=== PATIENT | male | born 2000 | race African-American/Black ===

== ENCOUNTER 2021-03-20 16:23 | Emergency (ER) | payer OTHER ==
[2021-03-20 17:01] LABS: Absolute Lymphocytes (CBC) 0.8 K/uL (0.7-4.9); Basophils % 0.7 % (0-1.3); Hematocrit 38.6 % (39.6-49.0); Lymphocytes % 13.4 % (15.3-44.8); RBC Red Blood Cell Count 4.85 M/uL (4.33-5.43)
[2021-03-20 17:13] LABS: BUN Blood Urea Nitrogen 15 mg/dL (7-18); Bicarbonate 27 mmol/L (21-32); Glucose Level 91 mg/dL (74-106); Potassium 3.7 mmol/L (3.5-5.1); Sodium Level 143 mmol/L (136-145)
--- NOTE | 2021-03-20 17:17 | RAD REPORT ---
EXAM DESCRIPTION: CT - [id number] - 03/20/2021 4:59 pm CLINICAL HISTORY: Trauma, head and neck injury. Pain;Numbness/tingling COMPARISON: No comparisons TECHNIQUE: Axial 5 mm thick images of the head were obtained. Axial 2 mm thick images of the cervical spine were obtained with sagittal and coronal reconstruction images generated and reviewed. All CT scans are performed using dose optimization technique as appropriate and may include automated exposure control or mA/KV adjustment according to patient size. FINDINGS: CT HEAD WITHOUT CONTRAST: No acute hemorrhage, hydrocephalus or extra-axial collection is identified.No areas of brain edema or midline shift. The paranasal sinuses and mastoids are clear.The calvarium is intact. CT CERVICAL SPINE WITHOUT CONTRAST: No fracture or subluxation.Mild midcervical spondylosis is present with kyphosis.No prevertebral soft tissues swelling is identified. IMPRESSION: No acute intracranial or cervical spine findings. Mild midcervical degenerative changes.
--- NOTE | 2021-03-20 17:44 | ER ---
Nurse's Notes [facility] Name: Zenon Kumari Age: 20 yrs Sex: Male : 2000 Arrival Date: 03/20/2021 Time: 16:26 Bed 2 Private MD: Diagnosis: Paresthesia of skin Presentation: 03/20 16:26 Chief complaint: EMS states: Toned out for possible SI, pt denies SI/HI, possible jl7 seizure, possible syncopal episode. Pt reports numbness to left nostril and left facial cheek x 2 weeks. Coronavirus screen: Client denies travel out of the [place] in the last 14 days. At this time, the client does not indicate any symptoms associated with coronavirus-19. Ebola Screen: No symptoms or risks identified at this time. Initial Sepsis Screen: Does the patient meet any 2 criteria? No. Patient's initial sepsis screen is negative. Does the patient have a suspected source of infection? No. Patient's initial sepsis screen is negative. Risk Assessment: Do you want to hurt yourself or someone else? Patient reports no desire to harm self or others. Onset of symptoms was March 20, 2021. Care prior to arrival: IV initiated. 18 GA, in the right forearm. 16:26 Method Of Arrival: EMS: [facility] 16:26 Acuity: KVNG 3 jl7 Triage Assessment: 16:32 General: Appears in no apparent distress. uncomfortable, Behavior is calm, cooperative, jl7 appropriate for age. Pain: Denies pain. Historical: - Allergies: 16:32 No Known Allergies; jl7 - Home Meds: 16:32 Lisinopril Oral [Active]; jl7 - PMHx: 16:32 Hypertensive disorder; jl7 - PSHx: 16:32 None; jl7 - Immunization history:: Adult Immunizations up to date, Client reports having NOT received the Covid vaccine. - Social history:: Smoking status: Patient denies any tobacco usage or history of. Screenin:28 Abuse screen: Denies threats or abuse. Nutritional screening: No deficits noted. jd3 Tuberculosis screening: No symptoms or risk factors identified. VAN Screening: Arm Drift: Patient shows no arm weakness. Patient is VAN negative. Fall Risk Fall in past 12 months (25 points). IV access (20 points). Ambulatory Aid- None/Bed Rest/Nurse Assist (0 pts). Gait- Normal/Bed Rest/Wheelchair (0 pts) Mental Status- Oriented to own ability (0 pts). Total Verdin Fall Scale indicates High Risk Score (45 or more points). Fall prevention measures have been instituted. Side Rails Up X 2 Placed Close to Nursing Station Frequent Obs/Assessments Occuring. Assessment: 16:28 General: Appears in no apparent distress. uncomfortable, Behavior is calm, cooperative, jd3 appropriate for age. Pain: Complains of pain in head and neck Quality of pain is described as crampy, tender. Neuro: Level of Consciousness is awake, alert, obeys commands, Oriented to person, place, time, situation, Skin Toggler are equal bilaterally Moves all extremities. Full function Speech is normal, Facial symmetry appears normal, Pupils are PERRLA, Intact Reports numbness in left cheek, left side of the nose and left ear since 2 weeks a syncopal episode. Cardiovascular: Denies chest pain, Capillary refill < 3 seconds Patient's skin is warm and dry. Respiratory: Airway is patent Respiratory effort is even, unlabored, Respiratory pattern is regular, symmetrical, Denies cough, shortness of breath. GI: No signs and/or symptoms were reported involving the gastrointestinal system. Patient currently denies diarrhea, nausea, vomiting. : No signs and/or symptoms were reported regarding the genitourinary system. EENT: No signs and/or symptoms were reported regarding the EENT system. Derm: Skin is intact, Skin is dry, Skin is normal, Skin temperature is warm. Musculoskeletal: Circulation, motion, and sensation intact. Range of motion: intact in all extremities. 17:30 Reassessment: Patient appears in no apparent distress at this time. No changes from jd3 previously documented assessment. Patient and/or family updated on plan of care and expected duration. Pain level reassessed. Patient is alert, oriented x 3, equal unlabored respirations, skin warm/dry/pink. Vital Signs: 16:26 BP 141 / 77; Pulse 79; Resp 15; Temp 97.2; Pulse Ox 100% ; Weight 86.18 kg; Height 5 jl7 ft. 11 in. (180.34 cm); 17:30 BP 148 / 91; Pulse 57; Resp 16 S; Pulse Ox 99% on R/A; jd3 16:26 Body Mass Index 26.50 (86.18 kg, 180.34 cm) jl7 ED Course: 16:26 Patient arrived in ED. jl7 16:26 London Ni PA is PHCP. jr8 16:26 Donald Puentes MD is Attending Physician. jr8 16:28 Roc Cohen, RN is Primary Nurse. jd3 16:30 Patient has correct armband on for positive identification. Bed in low position. Call jd3 light in reach. Side rails up X2. Adult w/ patient. Seizure precautions initiated. Pulse ox on. NIBP on. 16:32 Triage completed. jl7 16:32 Arm band placed on right wrist. jl7 16:37 Maintain EMS IV. Dressing intact. Good blood return noted. Site clean \T\ dry. Gauge \T\ lolis 3 site: 18 g to the left forearm. 16:57 CT Head C Spine In Process Unspecified. EDMS 17:56 No provider procedures requiring assistance completed. IV discontinued, intact, jd3 bleeding controlled, No redness/swelling at site. Pressure dressing applied. Administered Medications: No medications were administered Outcome: 17:43 Discharge ordered by MD. jr8 17:57 Discharged to Detention with long term guards jd3 17:57 Condition: stable 17:57 Discharge instructions given to patient, long term guards Instructed on discharge instructions, follow up and referral plans. Demonstrated understanding of instructions, follow-up care. 17:58 Patient left the ED. jd3 Signatures: Dispatcher [employer] EDMS London Ni PA PA jr8 Case Olmedo RN RN jl7 Roc Cohen, RN RN jd3 Corrections: (The following items were deleted from the chart) 16:37 16:28 General: Appears in no apparent distress. comfortable, Behavior is calm, jd3 cooperative, appropriate for age, jd3 16:37 16:28 Neuro: Level of Consciousness is awake, alert, obeys commands, Oriented to jd3 person, place, time, situation, Reports numbness in left cheek, left side of the nose and left ear since 2 weeks a syncopal episode jd3 16:37 16:37 Maintain EMS IV. Dressing intact. Good blood return noted. Site clean \T\ dry. jd3 Gauge \T\ site: 18 g to the left AC. jd3
--- NOTE | 2021-03-20 17:44 | EDPHYS ---
Physician Documentation [facility] Name: Zenon Kumari Age: 20 yrs Sex: Male : 2000 Arrival Date: 03/20/2021 Time: 16:26 Bed 2 Private MD: ED Physician Donald Puentes HPI: 03/20 17:09 This 20 yrs old Male presents to ER via EMS with complaints of facial numbness. jr8 17:09 Onset: The symptoms/episode began/occurred gradually, 3 week(s) ago. Duration: This was jr8 a single incident. The symptoms are alleviated by nothing. The symptoms are aggravated by nothing. Associated signs and symptoms: Pertinent positives: headache. Severity of symptoms: At their worst the symptoms were mild in the emergency department the symptoms are unchanged. The patient has not experienced similar symptoms in the past. The patient has not recently seen a physician. Patient stated that he has been complaining of facial numbness on left side for almost three weeks. Stated that he had been telling medical but that nothing was being done. Today stated that he blacked out. Upon report from [facility] staff they said there was a bed sheet around his neck. Patient denies wanting to kill himself or having SI. Historical: - Allergies: 16:32 No Known Allergies; jl7 - Home Meds: 16:32 Lisinopril Oral [Active]; jl7 - PMHx: 16:32 Hypertensive disorder; jl7 - PSHx: 16:32 None; jl7 - Immunization history:: Adult Immunizations up to date, Client reports having NOT received the Covid vaccine. - Social history:: Smoking status: Patient denies any tobacco usage or history of. ROS: 17:09 Eyes: Negative for injury, pain, redness, and discharge, ENT: Negative for injury, jr8 pain, and discharge, Neck: Negative for injury, pain, and swelling, Cardiovascular: Negative for chest pain, palpitations, and edema, Respiratory: Negative for shortness of breath, cough, wheezing, and pleuritic chest pain, Abdomen/GI: Negative for abdominal pain, nausea, vomiting, diarrhea, and constipation, Back: Negative for injury and pain, MS/Extremity: Negative for injury and deformity, Skin: Negative for injury, rash, and discoloration. 17:09 Neuro: Positive for headache, numbness. Exam: 17:22 Radiologist reports: No acute findings jr8 17:22 Constitutional: This is a well developed, well nourished patient who is awake, alert, and in no acute distress. Head/Face: Normocephalic, atraumatic. Eyes: Pupils equal round and reactive to light, extra-ocular motions intact. Lids and lashes normal. Conjunctiva and sclera are non-icteric and not injected. Cornea within normal limits. Periorbital areas with no swelling, redness, or edema. ENT: Nares patent. No nasal discharge, no septal abnormalities noted. Tympanic membranes are normal and external auditory canals are clear. Oropharynx with no redness, swelling, or masses, exudates, or evidence of obstruction, uvula midline. Mucous membranes moist. Neck: Trachea midline, no thyromegaly or masses palpated, and no cervical lymphadenopathy. Supple, full range of motion without nuchal rigidity, or vertebral point tenderness. No Meningismus. Chest/axilla: Normal chest wall appearance and motion. Nontender with no deformity. No lesions are appreciated. Cardiovascular: Regular rate and rhythm with a normal S1 and S2. No gallops, murmurs, or rubs. Normal PMI, no JVD. No pulse deficits. Respiratory: Lungs have equal breath sounds bilaterally, clear to auscultation and percussion. No rales, rhonchi or wheezes noted. No increased work of breathing, no retractions or nasal flaring. Abdomen/GI: Soft, non-tender, with normal bowel sounds. No distension or tympany. No guarding or rebound. No evidence of tenderness throughout. Back: No spinal tenderness. No costovertebral tenderness. Full range of motion. Skin: Warm, dry with normal turgor. Normal color with no rashes, no lesions, and no evidence of cellulitis. MS/ Extremity: Pulses equal, no cyanosis. Neurovascular intact. Full, normal range of motion. 17:22 Neuro: Orientation: to person, place, time \T\ situation. Mentation: is normal, Memory: is normal, immediate memory is intact, recent memory is intact, remote memory is intact, Cranial nerves: CN I not tested, CN II- XII are normal as tested, visual dillon are intact. extraocular movements are intact, Facial palsy and sensory deficits are absent. Speech is clear and appropriate. Tongue strength is normal, Cerebellar function: heel to fonseca testing is normal, Motor: moves all fours, Sensation: numbness, that is mild, of the left side of face; forehead, cheek, and mandibular region, seizure activity, is not displayed by the patient, Abnormal movements: there are no abnormal movements. Vital Signs: 16:26 BP 141 / 77; Pulse 79; Resp 15; Temp 97.2; Pulse Ox 100% ; Weight 86.18 kg; Height 5 jl7 ft. 11 in. (180.34 cm); 17:30 BP 148 / 91; Pulse 57; Resp 16 S; Pulse Ox 99% on R/A; jd3 16:26 Body Mass Index 26.50 (86.18 kg, 180.34 cm) jl7 MDM: 16:26 Patient medically screened. jr8 17:22 Data reviewed: vital signs, nurses notes, lab test result(s), radiologic studies, CT jr8 scan. Data interpreted: Pulse oximetry: on room air is 100 %. Interpretation: normal. Counseling: I had a detailed discussion with the patient and/or guardian regarding: the historical points, exam findings, and any diagnostic results supporting the discharge/admit diagnosis, lab results, radiology results, the need for outpatient follow up, a neurologist, to return to the emergency department if symptoms worsen or persist or if there are any questions or concerns that arise at home. ED course: No acute findings on labs or imaging. Patient has had this now for almost 3 weeks. No urgent need for admission and MRI evaluation. No other focal deficits noted on exam. 03/20 16:44 Order name: CBC with Diff; Complete Time: 17:09 jr8 03/20 16:44 Order name: Basic Metabolic Panel; Complete Time: 17:17 jr8 03/20 16:44 Order name: CT Head C Spine; Complete Time: 17:17 jr8 03/20 16:44 Order name: Magnesium; Complete Time: 17:17 jr8 Administered Medications: No medications were administered Disposition: 18:33 Co-signature as Attending Physician, Donald Puentes MD I agree with the assessment and kdr plan of care. Disposition Summary: 03/20/21 17:43 Discharge Ordered Location: Home jr8 Problem: new jr8 Symptoms: have improved jr8 Condition: Stable jr8 Diagnosis - Paresthesia of skin jr8 Followup: jr8 - With: Private Physician - When: 2 - 3 days - Reason: Recheck today's complaints, Continuance of care, Re-evaluation by your physician Discharge Instructions: - Discharge Summary Sheet jr8 - Paresthesia jr8 Forms: - Medication Reconciliation Form jr8 - Thank You Letter jr8 - Antibiotic Education jr8 - Prescription Opioid Use jr8 Signatures: Dispatcher [employer] EDMS Donald Puentes MD MD kdr Roszak, Josh, PA PA jr8 Case Olmedo RN RN jl7
[2021-03-20 18:22] VITALS: TEMP 97.2
[2021-03-20 18:24] VITALS: BP 148/91; O2SAT 99
== END 2021-03-20 17:58 | disposition home or self-care (01) ==
LOC: ER 16:23
DX: R20.2 Paresthesia of skin (principal); I10 Essential (primary) hypertension
CPT/HCPCS: 36415; 70450; 72125; 80048; 83735; 85025; 99283